=== PATIENT | male | born 1950 | race Caucasian/White ===

== ENCOUNTER 2018-04-17 19:25 | Inpatient (IN) | payer MEDICARE ==
[2018-04-17 20:02] LABS: Hemoglobin 12.8 g/dL (14.0-18.0); Mean Corpuscular Hemoglobin 30.1 pg (27.0-31.0); Mean Corpuscular Volume 91.3 fL (78.0-98.0); Mean Platelet Volume 8.3 fL (7.4-10.4); Platelet Count 178 thou/uL (130-400); RBC Distribution Width 12.5 % (11.5-14.5); Red Blood Cell (RBC) Count 4.24 mill/uL (4.70-6.10); White Blood Cell (WBC) Count 16.4 thou/uL (4.8-10.8)
[2018-04-17 20:19] LABS: Band 12 % (5-11); Lymphocytes 6 % (21-51); MDiff Complete? YES; Monocytes 2 % (0-10); Neutrophil 80 % (42-75); PLT Morphology Comment Appears Adequate; RBC Morphology Normal
[2018-04-17 20:24] LABS: ALT (SGPT) 33 U/L (8-55); AST (SGOT) 111 U/L (5-34); Albumin 3.8 g/dL (3.4-4.8); Alkaline Phosphatase 68 U/L (40-150); Anion Gap 19 mmol/L (10-20); BUN (Urea Nitrogen) 57 mg/dL (8.4-25.7); CK (CPK) 3845 U/L (30-200); Calc. Creatinine Clearance 0 mL/min (70-130); Calcium 9.3 mg/dL (7.8-10.44); Carbon Dioxide 21 mmol/L (23-31); Chloride 104 mmol/L (98-107); Estimated GFR-MDRD 44; Globulin 2.9 g/dL (2.4-3.5); Glucose 120 mg/dL (80-115); Protein, Total 6.7 g/dL (5.8-8.1); Sodium 140 mmol/L (136-145)
[2018-04-17 20:29] LABS: Troponin I 0.056 ng/mL (< 0.028)
[2018-04-17 20:30] LABS: CKMB 20.2 ng/mL (0-6.6)
[2018-04-17 20:48] LABS: Bilirubin Negative (Negative); Blood, Urine Negative (Negative); Clarity CLEAR (Clear); Glucose, Urine (Dipstick) Negative (Negative); Leukocyte Moderate (Negative); Nitrite Negative (Negative); Protein, Urine (Dipstick) Negative (Neg-Trace); Urobilinogen 0.2 mg/dL (0.2-1.0); pH, Urine 7.5 (5.0-9.0)
[2018-04-17] MEDS ORDERED: niCARdipine 20MG In NaCl 20 MG/200 ML BAG ONE (20:48)
--- NOTE | 2018-04-17 20:49 | CT ---
CT HEAD WITHOUT CONTRAST: Technique: Multiple contiguous axial images were obtained through the head without IV enhancement. Indications: Trauma, mental status change. FINDINGS: Ventricles are mildly prominent. Trivium septum pellucidum is noted. There are moderate chronic ische beena white matter changes. There is evidence of lacunar infarct involving the head of the caudate on t he left, age indeterminate. This extends into the left lentiform nucleus. There is also evidence of a lacunar infarct involving the right basal ganglia in the region of the po sterior limb of the right internal capsule and into the right thalamus, also age indeterminate. Small lacunar infarcts in the right lentiform nucleus. There is abnormal low attenuation of the brain stem on the right beginning at the level of the right cerebellar peduncle and extending into the mary ellen. No acute cortical infarct. No acute hemorrhage. IMPRESSION: There are prominent ischemic changes noted with evidence of multiple lacunar infarcts including brain stem infarcts, many of these are age indeterminate. Recommend MRI to assess for restricted diffusion . CTA would not be of benefit in evaluating deep small vessel infarcts. POS: [facility]
[2018-04-17 20:50] LABS: Bacteria/HPF None Seen HPF (None Seen); Hyaline Casts/LPF 0-3 HYALINE CAST LPF (0-3 Hyaline); RBC/HPF 0-3 HPF (0-3); Squamous Epithelial None Seen HPF (0-3); WBC/HPF None Seen HPF (0-3)
--- NOTE | 2018-04-17 20:50 | RAD ---
PORTABLE CHEST: History: Mental status change. FINDINGS: Lung wise are clear. Heart and mediastinum unremarkable. Vascular markings normal. IMPRESSION: No acute finding. POS: [facility]
[2018-04-17 20:51] LABS: Specific Gravity, Urine 1.002 (1.002-1.036)
[2018-04-17] MEDS ORDERED: Aspirin 325 MG TAB ONE (21:42)
[2018-04-17] MEDS ORDERED: Aspirin 300 MG Suppository ONE (21:51)
[2018-04-17] MEDS ORDERED: Calcium Carbonate 500 MG ChewTAB PO PRN (22:20)
[2018-04-17] MEDS ORDERED: Acetaminophen 325 MG TAB PO PRN (22:20)
[2018-04-17] MEDS ORDERED: Ondansetron PF 4 MG/2 ML Vial IVP PRN (22:20)
[2018-04-17] MEDS ORDERED: Ondansetron ODT 4 MG TAB PO PRN (22:20)
[2018-04-17] MEDS ORDERED: [UNRECOGNIZED DRUG - REMARK] IVPB PRN (22:33)
[2018-04-17 22:48] LABS: INR-International Normal Ratio 1.1; PTT 34.5 SEC (22.9-36.1); Prothrombin Time 14.5 SEC (12.0-14.7)
[2018-04-17] MEDS ORDERED: Vancomycin HCl 1 GM in Premix Bag 1 BAG IVPB SCH (23:15)
[2018-04-17] MEDS ORDERED: niCARdipine HCl 25 MG in Sodium Chloride 0.9% 250 ML 240 ML IVPB SCH (23:15)
[2018-04-17 23:25] VITALS: BMI 21.7
[2018-04-18] MEDS: Sodium Chloride 0.9% 1,000 ML IV SCH ×4 (00:05→23:49)
[2018-04-18 00:44] LABS: Troponin I 0.063 ng/mL (< 0.028)
[2018-04-18] MEDS: Piperacillin/Tazobactam 3.375 GM in Sodium Chloride 0.9% 100 ML IVPB SCH ×5 (01:42→23:49)
[2018-04-18] MEDS ORDERED: Clopidogrel Bisulfate 300 MG TAB PO SCH (02:15)
--- NOTE | 2018-04-18 02:37 | HP ---
CHIEF COMPLAINT: Sepsis and elevated blood pressure. HISTORY OF PRESENT ILLNESS: This is a 67-year-old male with no significant past medical history pres enting with sepsis and hypertensive urgency. History was taken from EMS and also electronic medical records. The patient currently is stating that he does not recall what happened to him, but per [facility] medical record, patient was brought in because the family called EMS stating that patient must have had a stroke. The patient was then transferred to our hospital to be evaluated. In the ED, simon givens was found to be septic and also found to have hypertensive urgency. REVIEW OF SYSTEMS: Unable to be obtained due to patient's mental status. The patient says that he d oes not recall anything that happened and patient is not answering questions. 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 PAST MEDICAL HISTORY: Unable to obtained from patient. PAST SURGICAL HISTORY: Unable to be obtained from the patient. FAMILY HISTORY: Unable to be obtained from patient. PSYCHIATRIC HISTORY: Unable to be obtained from patient. SOCIAL HISTORY: Unable to obtain from patient. ALLERGIES: No known drug allergies. CURRENT MEDICATIONS: Unable to obtain from patient. PHYSICAL EXAMINATION: VITAL SIGNS: Patient's blood pressure is 207/141, pulse of 101, respiratory rate of 22, temperature of 97.1, oxygen saturations 100% on room air. GENERAL: The patient is alert, oriented to only self. Patient is confused. Patient is not answerin g questions properly. Patient is not very cooperative. The patient looks very cachectic, disheveled , odorous. Patient is unkempt. HEENT: Normocephalic. Forehead abrasion and superficial contusion to front of forehead. Pupils are equally round and reactive to light. Extraocular movements are intact. No scleral icterus. NECK: Supple, no JVD. Trachea is midline. Full range of motion. LUNGS: Clear to auscultation bilaterally. No wheezing, no rales, no rhonchi is appreciated. CARDIOVASCULAR: Positive S1, S2, regular rate and rhythm. No murmurs, no gallops and no rubs apprec iated. ABDOMEN: Soft, nontender, nondistended, positive bowel sounds in all quadrants. BACK: Patient does have a pressure ulcer in the lumbar spine. EXTREMITIES: Patient has chronic venous stasis bilaterally of the lower extremities. Patient has 5/ 5 upper extremity strength, good pulses bilaterally in the upper extremities. Nails are dirty. The patient has onychomycosis of the nails and the nails are very long is uncut. Patient has 1+ edema at the ankle and there is a left knee abrasion. NEUROLOGIC: GCS of 15. The patient is alert, oriented to only self. Patient is confused. SKIN: No rashes seen. Warm and dry. PSYCHIATRIC: Patient is alert and oriented to only self. Patient is confused. Patient is not coope rative. The patient has a flat affect. IMAGING DATA: 1. EKG showed sinus rhythm at rate of 89, left anterior fascicular block with T-wave changes. 2. CT of the head showed ischemic changes noted in the lacunar region bilaterally and some hypodensi ties. 3. Chest x-ray is negative for any cardiopulmonary process. ED COURSE: Patient was given aspirin, Cardene IV and sodium chloride. LABORATORY DATA: WBC is 16.4, hemoglobin is 12.8, hematocrit 38.8, MCV is 91.3, RDW 12.5, platelet c ount 178 and neutrophils is 80%. PT is 14.5, INR is 1.1, PTT 34.4. Sodium 140, potassium is 4.0, chloride is 104, carbon dioxide of 2 1, anion gap of 19, BUN is 57, creatinine is 1.56, GFR 44, glucose 120, lactic acid is 1.8, AST 711, ALT 33, alkaline phosphatase 68, creatinine kinase 3845. Troponin is 0.056, 0.063 and there is moder ate leukoesterase and is on urinalysis. ASSESSMENT AND PLAN: 1. A 67-year-old male being admitted for encephalopathy, etiology unclear at this time, but most lik sola due to sepsis. 2. Sepsis secondary to urinary tract infection. At this point, patient has been started on antibiot ics. We will continue patient on antibiotics. We will continue patient on IV hydration. We will gi ve the patient medication for fever. 3. Acute kidney injury. The patient's creatinine is 1.56 and the patient's acute kidney injury is m ost likely due to dehydration. We will give patient gentle hydration. Monitor patient's creatinine and we will follow up on morning labs. 4. Hypertensive emergency. Patient's blood pressure is currently elevated. The patient has been st arted on IV Cardene. We will continue patient on IV Cardene and we will switch the patient to nitro if Cardene is not able to control the patient's blood pressure accordingly. 5. Malnutrition. We will get case management and we will give patient some nutrition. 6. Deconditioning. The patient will benefit from PT evaluation after patient has been treated and m anaged clinically. 7. Deep venous thrombosis and gastrointestinal prophylaxis.
[2018-04-18 06:14] LABS: #Lymphocytes 0.7 thou/uL (1.20-3.40); #Monocytes 0.5 thou/uL (0.11-0.59); #Neutrophils 10.3 thou/uL (1.40-6.50); %Basophils 0.4 % (0.0-1.0); %Eosinophils 0.2 % (0.0-10.0); %Monocytes 4.2 % (0.0-10.0); %Neutrophils 89.3 % (42.0-75.0); Hemoglobin 10.8 g/dL (14.0-18.0); Mean Corpuscular HGB CONC 33.3 g/dL (32.0-36.0); Mean Corpuscular Hemoglobin 30.4 pg (27.0-31.0); Mean Corpuscular Volume 91.4 fL (78.0-98.0); Platelet Count 148 thou/uL (130-400); RBC Distribution Width 12.4 % (11.5-14.5); Red Blood Cell (RBC) Count 3.54 mill/uL (4.70-6.10); White Blood Cell (WBC) Count 11.5 thou/uL (4.8-10.8)
[2018-04-18 06:32] LABS: ALT (SGPT) 37 U/L (8-55); AST (SGOT) 118 U/L (5-34); Albumin 3.2 g/dL (3.4-4.8); Alkaline Phosphatase 55 U/L (40-150); Anion Gap 12 mmol/L (10-20); BUN (Urea Nitrogen) 43 mg/dL (8.4-25.7); Bilirubin, Total 0.8 mg/dL (0.2-1.2); Calc. Creatinine Clearance 55 mL/min (70-130); Calcium 8.5 mg/dL (7.8-10.44); Carbon Dioxide 24 mmol/L (23-31); Chloride 110 mmol/L (98-107); Cholesterol 136 mg/dl (< 200 Desired); Estimated GFR-MDRD 64; Globulin 2.5 g/dL (2.4-3.5); Glucose 111 mg/dL (80-115); HDL Cholesterol 45 mg/dL (>60 Neg Risk); LDL Cholesterol, Calculated 76 mg/dL; Potassium 3.1 mmol/L (3.5-5.1); Protein, Total 5.7 g/dL (5.8-8.1); Sodium 143 mmol/L (136-145); Triglycerides 74 mg/dL (Less than 150)
[2018-04-18] MEDS ORDERED: CCU Electrolyte Replacement 1 EACH FS ONE (07:45)
[2018-04-18] MEDS ORDERED: Potassium Phosphate 12 MMOL in Sodium Chloride 0.9% 250 ML 250 ML IV PRN (07:51)
[2018-04-18] MEDS ORDERED: Potassium Chloride 20 MEQ TAB PO PRN (07:51)
[2018-04-18] MEDS ORDERED: Potassium Phosphate 9 MMOL in Sodium Chloride 0.9% 100 ML IVPB PRN (07:51)
[2018-04-18] MEDS ORDERED: Potassium Chloride 40 MEQ in Premix Bag 1 BAG IVPB PRN (07:51)
[2018-04-18] MEDS ORDERED: Magnesium Oxide 400 MG TAB PO PRN ×2 (07:51)
[2018-04-18] MEDS ORDERED: Potassium Chloride 40 MEQ in Sodium Chloride 0.9% 250 ML 250 ML IVPB PRN (07:51)
[2018-04-18] MEDS ORDERED: CCU ELECTROLYTE REPLACEMENT PROTOCOL FS PRN (07:51)
[2018-04-18] MEDS ORDERED: Potassium Phosphate 15 MMOL in Sodium Chloride 0.9% 250 ML 250 ML IV PRN (07:51)
[2018-04-18] MEDS ORDERED: Magnesium 2 GM/NS 0.9% 100 ML 2 GM in Premix Bag 1 BAG IVPB PRN (07:51)
[2018-04-18] MEDS: Metoprolol Tartrate 25 MG TAB PO SCH ×2 (08:10→20:10)
--- NOTE | 2018-04-18 08:12 | CON ---
DATE OF CONSULTATION: 04/18/2018 CONSULTING PHYSICIAN: Dr. Fer Sierra from the hospitalist group. REASON FOR CONSULTATION: Hypertensive emergency. HISTORY OF PRESENT ILLNESS: This is a 67-year-old male, who was brought into the emergency room last night after his family called EMS stating that the patient must have had a stroke. It is not clear what led to that assumption. The patient is really unable to give much in the way of history. He wi ll answer some short questions, but at times appears mostly catatonic. He was diagnosed with a urina ry tract infection and also hypertensive emergency. He was placed on nicardipine drip. He was found to have an elevated CK and has mildly elevated troponin. PAST MEDICAL HISTORY: Unknown. PAST SURGICAL HISTORY: Unknown. FAMILY MEDICAL HISTORY: Unknown. SOCIAL HISTORY: Unknown. ALLERGIES: Unknown. MEDICATIONS PRIOR TO ADMISSION: None. REVIEW OF SYSTEMS: Unobtainable. PHYSICAL EXAMINATION: VITAL SIGNS: Temperature 99.2, pulse 90, blood pressure 138/69, O2 saturation 99%. GENERAL: He is a disheveled-appearing male in no acute distress. HEENT EXAM: Pupils are 2 mm and reactive. Sclerae icteric. Oropharynx cannot examine; the patient will not open his mouth. NECK: No adenopathy. No JVD. CARDIAC: S1 and S2, regular with 2/6 systolic murmur. LUNGS: Clear. ABDOMEN: Soft, nontender, nondistended. EXTREMITIES: He has a bruise over his left knee. He will move all 4 extremities. LABORATORY DATA: Sodium 143, potassium 3.1, chloride 110, CO2 of 24, BUN 43, creatinine 1.1, glucose 111, AST 118, ALT 37, albumin 3.2. Troponin 0.063. CK-MB 3845. Urinalysis shows some moderate felix kocyte esterase. White blood cell count 11.5, hematocrit 32.4, platelet count 148. FINDINGS: Chest x-ray shows no evidence of a mass, effusion, or infiltrate. ASSESSMENT: 1. Altered mental status - etiology unclear. He does have some ischemic-appearing changes in the br ain, but age of these lesions could not be determined. 2. Elevated blood pressure at time of admission. 3. Mild rhabdomyolysis. 4. Doubt this is an acute coronary syndrome. RECOMMENDATIONS: 1. Stop the nicardipine drip and use labetalol p.r.n. elevated blood pressure. 2. Stop high dose Lovenox and go to a therapeutic dose. 3. We would consider stopping the Plavix also, but we will defer to Internal Medicine and Neurology on this. 4. I would limit his antibiotics to 48 hours if cultures are negative. 5. Obtain more history from family when they become available.
[2018-04-18] MEDS: Enoxaparin Sodium 40 MG/0.4 ML SYRINGE SC SCH (08:13)
[2018-04-18] MEDS ORDERED: Famotidine/PF 20 mg/2ml Vial SLOW IVP SCH ×2 (09:00)
[2018-04-18] MEDS ORDERED: Clopidogrel Bisulfate 75 MG TAB PO SCH (09:00)
[2018-04-18] MEDS ORDERED: Aspirin 81 mg Enteric Coated Tablet PO SCH (09:00)
[2018-04-18] MEDS ORDERED: Enoxaparin Sodium 40 MG/0.4 ML SYRINGE SC SCH (09:00)
[2018-04-18] MEDS ORDERED: Enoxaparin Sodium 60 MG/0.6 ML SYRINGE SC SCH (09:00)
--- NOTE | 2018-04-18 13:31 | PQF ---
CLINICAL DOCUMENTATION IMPROVEMENT CLARIFICATION FORM: ICD-10 Updated PLEASE DO AN ADDENDUM TO THE PROGRESS NOTE WITH ANY DOCUMENTATION UPDATES OR ADDITIONS AND CARRY THROUGH TO DC SUMMARY. THANK YOU. DATE: 04/17/18 ATTN: DR. DRISCOLL Please exercise your independent, professional judgment in responding to the clarification form. Clinical indicators are provided on the bottom of this form for your review Please check appropriate box(s): [ x ] Encephalopathy: Type: [ x ] Acute [ ] Subacute [ ] Chronic Etiology: [ x ] Hypertensive [ x ] Metabolic [ ] Toxic [ ] Hepatic with Coma [ ] Hepatic w/o Coma [ ] Hypoxic [ ] Septic [ ] Drug induced: [ ] Unspecified [ ] in the setting of underlying dementia [ ] Other (please specify) [ ] Transient Alteration of Awareness [ ] Other diagnosis [ ] Unable to determine In addition, please specify: Present on Admission (POA): [ x ] Yes [ ] No [ ] Unable to determine For continuity of documentation, please document condition throughout progress notes and discharge summary. Thank You. 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 All Rights Reserved [email or web address] Office: [phone] [facility] HOSPITALJacob
--- NOTE | 2018-04-18 13:45 | PDOC.PN ---
- Subjective Encounter Start Date: 04/18/18 Encounter Start Time: 07:00 Pt seen for followup re: acute metabolic encephalopathy. Pt is not answering questions, just staring, unable to complete ROS. - Objective Resuscitation Status: Resuscitation Status FULL:Full Resuscitation MAR Reviewed: Yes Vital Signs & Weight: Vital Signs (12 hours) Temp Pulse Ox 04/18/18 08:00 100 04/18/18 07:00 99.2 F 04/18/18 04:00 98.4 F Weight Weight 138 lb 7.205 oz Most Recent Monitor Data Heart Rate from ECG 88 NIBP 137/69 NIBP BP-Mean 91 Respiration from ECG 10 SpO2 99 I&O: 04/17/18 04/18/18 04/19/18 06:59 06:59 06:59 Intake Total 1822.7 Output Total 280 450 Balance 1542.7 -450 Result Diagrams: 04/18/18 05:59 04/18/18 05:59 EKG Reviewed by me: Yes (Tele: NSR) Phys Exam - Physical Examination Constitutional: NAD HEENT: moist MMs, sclera anicteric, oral pharynx no lesions, 2+ tonsils Neck: no nodes, no JVD, supple, full ROM Respiratory: no wheezing, no rales, no rhonchi, clear to auscultation bilateral Cardiovascular: RRR, no rub S1, S2 Gastrointestinal: soft, non-tender, no distention, positive bowel sounds Neurological: moves all 4 limbs Psychiatric: normal affect Deviation from normal: Unable to assess orientation to person, place or time Deviation from normal: Wounds as documented Dx/Plan (1) Acute metabolic encephalopathy Code(s): G93.41 - METABOLIC ENCEPHALOPATHY Status: Acute Comment: Likely multifactorial, including infection (2) Sepsis Code(s): A41.9 - SEPSIS, UNSPECIFIED ORGANISM Status: Acute Comment: secondary to probable UTI (3) UTI (urinary tract infection) Status: Acute Comment: continue IV Zosyn and IV vancomycin (4) Hypokalemia Code(s): E87.6 - HYPOKALEMIA Status: Acute Comment: replace potassium and recheck (5) Hypertensive urgency Code(s): I16.0 - HYPERTENSIVE URGENCY Status: Acute Comment: Improved (6) AIDEN (acute kidney injury) Code(s): N17.9 - ACUTE KIDNEY FAILURE, UNSPECIFIED Status: Resolved - Plan * . Review of Systems - Medications/Allergies Allergies/Adverse Reactions: Allergies Allergy/AdvReac Type Severity Reaction Status Date / Time No Known Drug Allergies Allergy Unverified 04/17/18 22:56 Medications: Current Medications Acetaminophen (Tylenol) 650 mg PO Q4H PRN PRN Reason: Headache/Fever/Mild Pain (1-3) Atorvastatin Calcium (Lipitor) 80 mg PO HS [facility] Calcium Carbonate (Tums) 1,000 mg PO Q4H PRN PRN Reason: Heartburn or Indigestion Clopidogrel Bisulfate (Plavix) 75 mg PO DAILY [facility] Last Admin: 04/18/18 08:10 Dose: 75 mg Enoxaparin Sodium (Lovenox) 40 mg SC 0900 [facility] Last Admin: 04/18/18 08:13 Dose: 40 mg Famotidine (Pepcid) 20 mg PO BID [facility] Sodium Chloride (Normal Saline 0.9%) 1,000 mls @ 125 mls/hr IV .Q8H [facility] Last Admin: 04/18/18 11:52 Dose: 1,000 mls Piperacillin Sod/Tazobactam (Sod 3.375 gm/ Sodium Chloride) 100 mls @ 200 mls/ hr IVPB Q6HR [facility] Last Admin: 04/18/18 11:56 Dose: 100 mls Vancomycin HCl 1 gm/ Device 200 mls @ 200 mls/hr IVPB Q24HR [facility] Potassium Chloride 40 meq/ (Sodium Chloride) 270 mls @ 135 mls/hr IVPB ASDIR PRN PRN Reason: FOR SERUM K+ 2.5 - 3.5 Potassium Chloride 40 meq/ (Device) 100 mls @ 50 mls/hr IVPB ASDIR PRN PRN Reason: FOR SERUM K+ 2.5 - 3.5 Magnesium Sulfate 1 gm/ Sodium (Chloride) 102 mls @ 102 mls/hr IV PRN PRN PRN Reason: MAG LEVEL 1.4 - 2.0 Magnesium Sulfate 2 gm/ Device 100 mls @ 100 mls/hr IVPB ASDIR PRN PRN Reason: MAGNESIUM < 1.4 Potassium Phosphate 9 mmol/ (Sodium Chloride) 103 mls @ 25.75 mls/hr IVPB ASDIR PRN PRN Reason: Phosphate 1.0-1.8 Potassium Phosphate 12 mmol/ (Sodium Chloride) 254 mls @ 63.5 mls/hr IV ASDIR PRN PRN Reason: Serum phosphate 0.5-0.9 Potassium Phosphate 15 mmol/ (Sodium Chloride) 255 mls @ 63.75 mls/hr IV ASDIR PRN PRN Reason: Serum Phos < 0.5 Labetalol HCl (Normodyne) 20 mg SLOW IVP Q4H PRN PRN Reason: SBP GREATER THAN 160 Magnesium Oxide (Magnesium Oxide) 400 mg PO BIDPRN PRN PRN Reason: FOR SERUM MAG 1.4 - 2.0 Magnesium Oxide (Magnesium Oxide) 800 mg PO PRN PRN PRN Reason: FOR SERUM MAG < 1.4 Metoprolol Tartrate (Lopressor) 12.5 mg PO BID [facility] Last Admin: 04/18/18 08:10 Dose: 12.5 mg Miscellaneous Medication (Pharmacy To Dose) 1 each IVPB PRN PRN PRN Reason: Pharmacy to dose Miscellaneous Medication (Pharmacy To Dose) 1 each IVPB ONE PRN PRN Reason: Pharmacy to dose Stop: 04/18/18 23:59 Miscellaneous Medication (Phos-Nak) 1 pkt PO TIDPRN PRN PRN Reason: FOR PHOS LEVEL 1.0 - 1.8 Miscellaneous Medication (Phos-Nak) 2 pkt PO TIDPRN PRN PRN Reason: FOR PHOS LEVEL 0.5 - 1.0 Ccu Electrolyte (Replacement Protocol) 0 each FS PRN PRN PRN Reason: FOR ELECTROLYTE REPLACEMENT Ondansetron HCl (Zofran Odt) 4 mg PO Q6H PRN PRN Reason: Nausea/Vomiting Ondansetron HCl (Zofran) 4 mg IVP Q6H PRN PRN Reason: Nausea/Vomiting Potassium Chloride (K-Dur) 40 meq PO ASDIR PRN PRN Reason: FOR SERUM K+ 2.5 - 3.5 Potassium Chloride (Klor-Con) 40 meq PER TUBE ASDIR PRN PRN Reason: FOR SERUM K+ 2.5-3.5 Sodium Chloride (Flush - Normal Saline) 10 ml IVF PRN PRN PRN Reason: Saline Flush
--- NOTE | 2018-04-18 14:30 | MRI ---
MRI BRAIN WITHOUT CONTRAST: COMPARISON: Reference is made to head CT from preceding day. CLINICAL INDICATION: History of altered mental status. History of recent trauma. FINDINGS: There is punctate restricted diffusion involving the anterior left thalamus, and within the bilateral cerebellar hemispheres as well as medially within the posterior aspect of the left centrum semiovale . There are chronic cavitary lacunar infarctions which involve the brainstem bilaterally and the inf erior left cerebellar hemisphere. Not confirmed on CT from preceding day, there is hemorrhagic susceptibility of the anterior left temp oral sulci. In addition, there are multifocal susceptibility foci consistent with mack artifact whi ch involve the bilateral brain parenchyma as well as deep barrientos nuclei and the brainstem. Cavum septu m pellucidum et vergae is present. There is prominence of the ventricular system due to generalized mild parenchymal atrophy. Prominent gliosis of the bilateral cerebral white matter and brainstem ind icates moderate chronic microvascular ischemic disease. There is motion artifact which limits evalua tion. IMPRESSION: 1. Multifocal punctate restricted diffusion compatible with recent infarctions, involving supratento rial and infratentorial brain. This could relate to an embolic phenomenon versus hyperperfusion. 2. Multifocal susceptibility artifact compatible with areas of hemosiderin deposition, the dominant of which confirms for anterior left temporal sulci. The possibility of small volume of subarachnoid hemorrhage from recent hemorrhage is not excluded, or alternatively this could relate to remote hemos iderin staining, although this is not confirmed on the preceding CT head exam as an area of definitiv e remote infarction. The additional multifocal susceptibility foci favor sequelae from vasculopathy s uch as amyloid angiopathy or alternatively findings can be seen in the setting of hypertensive microh emorrhages or ischemic microhemorrhage. Given history of trauma which was provided on the previous d ay's exams, the possibility of diffuse axonal injury cannot be excluded. Correlate clinically in thi s regard. Additional details are as described above. These findings were telephoned to the patient's physician, Prashant Dawson, at the time of dictation. CODE CR POS: [place]
--- NOTE | 2018-04-18 19:44 | CON ---
DATE OF CONSULTATION: 04/18/2018 HISTORY OF PRESENT ILLNESS: Ronak Nelson is a 67-year-old white male who was brought to the hospital by EMS after the family called 911 stating that they thought he has a stroke. It is exactly unclear exactly what was happening at home. However, he has been fairly uncooperative and is in 4-point restraints at the present time. He was very confused and most of time would not answer any questions. He has 1 evidence of rhabdomyolysis and also slight elevation in troponin I. He has significant hypertension and was placed on Cardene drip and also found to have urinary tract infection and felt to have urosepsis. PAST MEDICAL HISTORY: Unknown although he states that he has had high blood pressure in the past. MEDICATIONS: None. ALLERGIES: Unknown. SOCIAL HISTORY: Apparently smokes. He has a history of drug abuse in the past. FAMILY HISTORY: Unobtainable. REVIEW OF SYSTEMS: Unobtainable. PHYSICAL EXAMINATION: VITAL SIGNS: Blood pressure 136/81, pulse of 86, sinus rhythm. HEENT: PERRL. NECK: Supple. CHEST: Clear. CARDIAC: S1, S2 normal, without any S3, S4. There is a 1/6 systolic ejection murmur. ABDOMEN: Normal bowel sounds, without tenderness or organomegaly. EXTREMITIES: Revealed no clubbing, cyanosis or edema. NEUROLOGIC: It is hard to assess in that the patient really does not answer most questions. IMAGING DATA AND LABORATORY DATA: EKG revealed normal sinus rhythm with left anterior fascicular block, nonspecific T-wave changes. Hemoglobin 10.8, hematocrit 32.4, white count 11,500 and platelets 140,000. INR 1.1, sodium 143 , potassium 3.1, chloride 110, carbon dioxide 24, BUN 43, creatinine 1.13. It is of note that on admission, his BUN 57, creatinine 1.56, CK 3845, CK-MB 20.2, troponin I 0.063. Cholesterol 136, triglycerides 74, HDL 45 and LDL 76. Urinalysis revealed moderate leukocyte esterase, 0-3 RBCs. No bacteria or white cells were seen. Blood culture is growing a gram-variable deb. IMPRESSION: 1. Altered mental status. In discussing with the nurse there is questionable history of schizophrenia. 2. Probable urosepsis. 3. Hypertensive emergency, now under better control. 4. Rhabdomyolysis. 5. Demand ischemia. I do not see any evidence for acute coronary syndrome. 6. Smoker. PLAN: Echocardiogram will be performed. He has been started on aspirin. I do not feel that he needs to be on Plavix or the high dose atorvastatin with his current LDL. MTDD
[2018-04-18] MEDS: Famotidine 20 MG TAB PO SCH (20:10)
--- NOTE | 2018-04-18 20:16 | CON ---
DATE OF CONSULTATION: 04/18/2018 NEUROLOGY CONSULTATION CONSULTING PHYSICIAN: Hospitalist Service. IMPRESSION: There are some minor acute ischemic changes noted in the midst of severe hypertension. He seems to have a nonfocal exam and he is generally disheveled with decubitus ulcers. Overall, I th ink that there is probably a psychiatric component superimposed on maybe some transient hypertensive encephalopathy. PLAN: 1. Continue supportive measures. 2. Aspirin daily. 3. Start a low dose of statin. Mr. Nelson is a 67-year-old man who was brought in with reported mental status changes. He was noted to be severely hypertensive with pressures of 240/140. He was started on IV medications to bring his blood pressure under control. He has continued to act oddly since admission. He denies a history o f psychiatric problems. His blood pressure has been doing well for the last 24 hours. He had an MRI of the brain done today which showed a fairly extensive amount of chronic white matter ischemic solomon ges superimposed on a few punctate areas of acute ischemia involving the bilateral cerebellar lobes a nd left periventricular region. None of these appear clinically significant. The patient is without any complaints of headache, nausea, dizziness or chest pain. PAST MEDICAL HISTORY: Otherwise unknown. ALLERGIES: None reported. FAMILY HISTORY: Not obtainable. REVIEW OF SYSTEMS: Otherwise, negative. PHYSICAL EXAMINATION: GENERAL: He is a thin, disheveled-appearing gentleman, lying in bed quietly. VITAL SIGNS: Blood pressure 148/77, pulse 75, respirations 12 and saturations 100%. HEENT: Pupils equal and reactive. Conjunctivae clear. Oropharynx is clear. NECK: Supple. EXTREMITIES: There is some skin breakdown on the heels due to pressure ulcers. Same is true for the coccyx region. NEUROLOGIC: He is awake and has a very flat affect. He speaks very softly. He would follow some si mple commands reasonably well. Cranial nerves appeared to be intact. He had good antigravity streng th in both upper extremities. Could not really get him to cooperate with moving his legs, but he did withdraw appropriately to stimulation. Plantar responses were downgoing bilaterally. No abnormal m ovements were seen. SUMMARY: His current management appears appropriate given his extensive small vessel ischemic diseas e. I would go ahead and start antiplatelet therapy and a statin, might benefit from psychiatric eval uation later.
[2018-04-18] MEDS ORDERED: Vancomycin HCl 1 GM in Premix Bag 1 BAG IVPB SCH (21:00)
[2018-04-18] MEDS ORDERED: Atorvastatin Calcium 40 MG TAB PO SCH (21:00)
[2018-04-19 05:26] LABS: #Eosinphils 0.1 thou/uL (0.0-0.7); #Lymphocytes 0.7 thou/uL (1.20-3.40); #Monocytes 0.3 thou/uL (0.11-0.59); #Neutrophils 5.7 thou/uL (1.40-6.50); %Basophils 0.6 % (0.0-1.0); %Eosinophils 1.7 % (0.0-10.0); %Monocytes 4.7 % (0.0-10.0); Hemoglobin 10.1 g/dL (14.0-18.0); Mean Corpuscular HGB CONC 31.8 g/dL (32.0-36.0); Mean Corpuscular Volume 94.2 fL (78.0-98.0); Mean Platelet Volume 8.1 fL (7.4-10.4); Platelet Count 153 thou/uL (130-400); RBC Distribution Width 12.6 % (11.5-14.5); Red Blood Cell (RBC) Count 3.38 mill/uL (4.70-6.10); White Blood Cell (WBC) Count 6.9 thou/uL (4.8-10.8)
[2018-04-19 05:46] LABS: ALT (SGPT) 35 U/L (8-55); AST (SGOT) 95 U/L (5-34); Alkaline Phosphatase 51 U/L (40-150); Anion Gap 12 mmol/L (10-20); BUN (Urea Nitrogen) 23 mg/dL (8.4-25.7); Bilirubin, Total 0.5 mg/dL (0.2-1.2); CK (CPK) 1420 U/L (30-200); Calc. Creatinine Clearance 65 mL/min (70-130); Calcium 8.4 mg/dL (7.8-10.44); Carbon Dioxide 23 mmol/L (23-31); Chloride 113 mmol/L (98-107); Estimated GFR-MDRD 79; Globulin 2.4 g/dL (2.4-3.5); Glucose 95 mg/dL (80-115); Magnesium 1.7 mg/dL (1.6-2.6); Phosphorus 2.1 mg/dL (2.3-4.7); Protein, Total 5.4 g/dL (5.8-8.1); Sodium 145 mmol/L (136-145)
[2018-04-19] MEDS: Piperacillin/Tazobactam 3.375 GM in Sodium Chloride 0.9% 100 ML IVPB SCH ×3 (06:06→17:25)
[2018-04-19] MEDS: hydrALAZINE 20 MG/ML VIAL SLOW IVP PRN ×2 (06:53→13:18)
--- NOTE | 2018-04-19 08:05 | PRG ---
DATE OF SERVICE: 04/19/2018 SUBJECTIVE: The patient continues to be about the same. He will answer some short questions. He mo ves all 4 extremities to command. PHYSICAL EXAMINATION: VITAL SIGNS: On exam, his temperature is 98.0, pulse 65, blood pressure 170/80, O2 sat 100%. A 24-h our intake 2193 and output 1995. HEENT: Unremarkable. NECK: No JVD. CHEST: Clear without wheezing. CARDIAC: S1 and S2, regular. ABDOMEN: Soft. EXTREMITIES: No edema. His blood cultures are growing out Proteus, left arm. LABORATORY DATA: Sodium 145, potassium 3.0, chloride 113, CO2 of 23, BUN 23, creatinine 0.9, glucose 95, phosphorus 2.1, AST 95, ALT 35. CPK 1420, albumin 3.0. White blood cell count 6.9, hematocrit 31.8, platelet count 153. ASSESSMENT: 1. Hypertension. 2. Sepsis syndrome with Proteus. 3. Decubitus ulcer. 4. Rhabdomyolysis. PLAN: 1. Could transfer out to the stroke floor and begin rehabilitation therapy. 2. Continue antibiotics., but discontinue the vancomycin since only gram-negatives are growing. 3. Hypertension, management per Internal Medicine and Cardiology.
[2018-04-19] MEDS: Famotidine 20 MG TAB PO SCH ×2 (08:12→22:15)
[2018-04-19] MEDS: Enoxaparin Sodium 40 MG/0.4 ML SYRINGE SC SCH (08:12)
[2018-04-19] MEDS: Metoprolol Tartrate 25 MG TAB PO SCH ×2 (08:12→22:15)
[2018-04-19] MEDS: Sodium Chloride 0.9% 1,000 ML IV SCH (10:35)
[2018-04-19] MEDS: Sodium Chloride 0.45% 1,000 ML IV SCH (12:40)
[2018-04-19] MEDS ORDERED: Potassium Phosphate 30 MMOL in Sodium Chloride 0.9% 500 ML IVPB SCH (13:00)
--- NOTE | 2018-04-19 15:08 | PDOC.PN ---
- Subjective Encounter Start Date: 04/19/18 Encounter Start Time: 08:40 Pt seen for followup re: acute metabolic encephalopathy. Not answering questions, unable to complete ROS. - Objective Resuscitation Status: Resuscitation Status FULL:Full Resuscitation MAR Reviewed: Yes Vital Signs & Weight: Vital Signs (12 hours) Temp Pulse Pulse Pulse BP BP BP 04/19/18 13:18 69 179/86 H 04/19/18 11:00 98.1 F 04/19/18 10:01 94 112 H 144/70 H 170/83 H 04/19/18 07:30 04/19/18 07:00 98.0 F 04/19/18 06:53 69 170/80 H 04/19/18 04:00 98 F Pulse Ox 04/19/18 13:18 04/19/18 11:00 04/19/18 10:01 04/19/18 07:30 99 04/19/18 07:00 04/19/18 06:53 04/19/18 04:00 Weight Admit Weight 138 lb 7.205 oz Weight 138 lb 7.205 oz Most Recent Monitor Data Heart Rate from ECG 107 NIBP 162/88 NIBP BP-Mean 112 Respiration from ECG 20 SpO2 100 I&O: 04/18/18 04/19/18 04/20/18 06:59 06:59 06:59 Intake Total 1822.7 2193 1395 Output Total 280 1995 426 Balance 1542.7 198 969 Result Diagrams: 04/19/18 04:32 04/19/18 04:32 EKG Reviewed by me: Yes (Tele: NSR) Phys Exam - Physical Examination Constitutional: NAD HEENT: moist MMs, sclera anicteric, oral pharynx no lesions, 2+ tonsils Neck: no nodes, no JVD, supple, full ROM Respiratory: no wheezing, no rales, no rhonchi, clear to auscultation bilateral Cardiovascular: RRR, no rub S1, S2 Gastrointestinal: soft, non-tender, no distention, positive bowel sounds Neurological: moves all 4 limbs Deviation from normal: Unable to assess mood or orientation to person, place, or time Deviation from normal: wounds as documented Dx/Plan (1) Acute metabolic encephalopathy Code(s): G93.41 - METABOLIC ENCEPHALOPATHY Status: Acute Comment: Likely multifactorial, fluctuating level of alertness (2) Sepsis Code(s): A41.9 - SEPSIS, UNSPECIFIED ORGANISM Status: Acute Comment: secondary to bacteremia, continue IV Zosyn (3) Hypokalemia Code(s): E87.6 - HYPOKALEMIA Status: Acute Comment: replace potassium and recheck (4) UTI (urinary tract infection) Status: Suspected Comment: urine culture showed mixed growth (5) Hypertensive urgency Code(s): I16.0 - HYPERTENSIVE URGENCY Status: Resolved (6) AIDEN (acute kidney injury) Code(s): N17.9 - ACUTE KIDNEY FAILURE, UNSPECIFIED Status: Resolved - Plan * . Review of Systems - Medications/Allergies Allergies/Adverse Reactions: Allergies Allergy/AdvReac Type Severity Reaction Status Date / Time No Known Drug Allergies Allergy Unverified 04/17/18 22:56 Medications: Current Medications Acetaminophen (Tylenol) 650 mg PO Q4H PRN PRN Reason: Headache/Fever/Mild Pain (1-3) Enoxaparin Sodium (Lovenox) 40 mg SC 0900 [facility] Last Admin: 04/19/18 08:12 Dose: 40 mg Famotidine (Pepcid) 20 mg PO BID [facility] Last Admin: 04/19/18 08:12 Dose: 20 mg Hydralazine HCl (Apresoline) 10 mg SLOW IVP Q6H PRN PRN Reason: SBP Greater Than 170 Last Admin: 04/19/18 13:18 Dose: 10 mg Piperacillin Sod/Tazobactam (Sod 3.375 gm/ Sodium Chloride) 100 mls @ 200 mls/ hr IVPB Q6HR [facility] Last Admin: 04/19/18 12:40 Dose: 100 mls Sodium Chloride (1/2 Normal Saline) 1,000 mls @ 75 mls/hr IV .[id number] [facility] Last Admin: 04/19/18 12:40 Dose: 1,000 mls Potassium Phosphate 30 mmol/ (Sodium Chloride) 510 mls @ 83.3 mls/hr IVPB NOW [facility] Stop: 04/19/18 19:08 Last Admin: 04/19/18 13:18 Dose: 510 mls Labetalol HCl (Normodyne) 20 mg SLOW IVP Q4H PRN PRN Reason: SBP GREATER THAN 160 Metoprolol Tartrate (Lopressor) 12.5 mg PO BID [facility] Last Admin: 04/19/18 08:12 Dose: 12.5 mg Miscellaneous Medication (Pharmacy To Dose) 1 each IVPB PRN PRN PRN Reason: Pharmacy to dose Ccu Electrolyte (Replacement Protocol) 0 each FS PRN PRN PRN Reason: FOR ELECTROLYTE REPLACEMENT
[2018-04-19] MEDS: Labetalol HCl 100 MG/20 ML VIAL SLOW IVP PRN (17:49)
[2018-04-20] MEDS: Labetalol HCl 100 MG/20 ML VIAL SLOW IVP PRN ×3 (00:25→16:13)
[2018-04-20] MEDS: Piperacillin/Tazobactam 3.375 GM in Sodium Chloride 0.9% 100 ML IVPB SCH ×2 (00:25→06:10)
[2018-04-20] MEDS: Sodium Chloride 0.45% 1,000 ML IV SCH ×2 (00:33→16:13)
[2018-04-20 04:53] LABS: Anion Gap 11 mmol/L (10-20); BUN (Urea Nitrogen) 19 mg/dL (8.4-25.7); CK (CPK) 565 U/L (30-200); Calc. Creatinine Clearance 61 mL/min (70-130); Calcium 8.3 mg/dL (7.8-10.44); Carbon Dioxide 23 mmol/L (23-31); Chloride 114 mmol/L (98-107); Estimated GFR-MDRD 72; Glucose 102 mg/dL (80-115); Phosphorus 2.7 mg/dL (2.3-4.7); Potassium 3.3 mmol/L (3.5-5.1); Sodium 145 mmol/L (136-145)
[2018-04-20] MEDS ORDERED: ISOVUE-370 76%-LOCM 1 ML ONE (08:54)
[2018-04-20] MEDS: Metoprolol Tartrate 25 MG TAB PO SCH ×2 (09:20→22:56)
[2018-04-20] MEDS: Enoxaparin Sodium 40 MG/0.4 ML SYRINGE SC SCH (09:21)
[2018-04-20] MEDS: Famotidine 20 MG TAB PO SCH ×2 (09:21→22:56)
[2018-04-20] MEDS: hydrALAZINE 20 MG/ML VIAL SLOW IVP PRN ×2 (09:22→18:55)
--- NOTE | 2018-04-20 13:51 | PDOC.PN ---
- Subjective Encounter Start Date: 04/20/18 Encounter Start Time: 07:20 Pt seen for followup re: bacteremia. Not answering questions, unable to complete ROS. - Objective Resuscitation Status: Resuscitation Status FULL:Full Resuscitation MAR Reviewed: Yes Vital Signs & Weight: Vital Signs (12 hours) Temp Pulse Resp BP BP Pulse Ox 04/20/18 11:00 97.8 F 75 16 167/79 H 98 04/20/18 09:22 73 179/87 H 04/20/18 07:44 98.5 F 66 16 176/80 H 98 04/20/18 05:13 153/81 H 04/20/18 04:26 68 188/93 H 04/20/18 04:20 188/90 H 04/20/18 04:00 98.6 F 79 18 188/93 H 97 Weight Admit Weight 138 lb 7.205 oz Weight 138 lb 7.205 oz Most Recent Monitor Data Heart Rate from ECG 71 NIBP 162/87 NIBP BP-Mean 112 Respiration from ECG 2 SpO2 100 I&O: 04/19/18 04/20/18 04/21/18 06:59 06:59 06:59 Intake Total 2193 2227 Output Total 1994 558 Balance 198 1669 Result Diagrams: 04/19/18 04:32 04/20/18 03:59 EKG Reviewed by me: Yes (Tele: NSR) Phys Exam - Physical Examination Constitutional: NAD HEENT: moist MMs Neck: supple Respiratory: clear to auscultation bilateral Cardiovascular: RRR Gastrointestinal: soft Neurological: moves all 4 limbs Psychiatric: normal affect Deviation from normal: Bruises Dx/Plan (1) Bacteremia Code(s): R78.81 - BACTEREMIA Status: Acute Comment: blood cultures posiive for Proteus and Morganella, switch antibiotics to ciprofloxacin. (2) Acute metabolic encephalopathy Code(s): G93.41 - METABOLIC ENCEPHALOPATHY Status: Acute Comment: Likely multifactorial, including infection and probable psychiatric disorder (3) Hypokalemia Code(s): E87.6 - HYPOKALEMIA Status: Acute Comment: replace potassium and recheck (4) UTI (urinary tract infection) Status: Suspected (5) Hypertensive urgency Code(s): I16.0 - HYPERTENSIVE URGENCY Status: Resolved (6) AIDEN (acute kidney injury) Code(s): N17.9 - ACUTE KIDNEY FAILURE, UNSPECIFIED Status: Resolved (7) Sepsis Code(s): A41.9 - SEPSIS, UNSPECIFIED ORGANISM Status: Resolved - Plan * . Review of Systems - Medications/Allergies Allergies/Adverse Reactions: Allergies Allergy/AdvReac Type Severity Reaction Status Date / Time No Known Drug Allergies Allergy Verified 04/20/18 05:55 Medications: Current Medications Acetaminophen (Tylenol) 650 mg PO Q4H PRN PRN Reason: Headache/Fever/Mild Pain (1-3) Enoxaparin Sodium (Lovenox) 40 mg SC 0900 [facility] Last Admin: 04/20/18 09:21 Dose: 40 mg Famotidine (Pepcid) 20 mg PO BID [facility] Last Admin: 04/20/18 09:21 Dose: 20 mg Hydralazine HCl (Apresoline) 10 mg SLOW IVP Q6H PRN PRN Reason: SBP Greater Than 170 Last Admin: 04/20/18 09:22 Dose: 10 mg Sodium Chloride (1/2 Normal Saline) 1,000 mls @ 75 mls/hr IV .[id number] [facility] Last Admin: 04/20/18 00:33 Dose: 1,000 mls Ciprofloxacin/Dextrose 400 mg/ (Device) 200 mls @ 200 mls/hr IVPB Q12HR [facility] Labetalol HCl (Normodyne) 20 mg SLOW IVP Q4H PRN PRN Reason: SBP GREATER THAN 160 Last Admin: 04/20/18 04:26 Dose: 4 ml Metoprolol Tartrate (Lopressor) 12.5 mg PO BID [facility] Last Admin: 04/20/18 09:20 Dose: 12.5 mg Ccu Electrolyte (Replacement Protocol) 0 each FS PRN PRN PRN Reason: FOR ELECTROLYTE REPLACEMENT
[2018-04-20] MEDS ORDERED: Potassium Chloride 20 MEQ TAB PO SCH (14:00)
--- NOTE | 2018-04-20 14:43 | PRG ---
DATE OF SERVICE: 04/20/2018 SUBJECTIVE: He is aphasic, status post cerebrovascular accident. OBJECTIVE: VITAL SIGNS: Blood pressure is 179/87, pulse 73, temperature 98, sats are 90% on room air. CHEST: No wheezing, no crackles. CARDIAC: Normal S1 and S2. No gallops. ABDOMEN: Soft. No masses. IMPRESSION: 1. Gram-negative sepsis, on IV Cipro. 2. Cerebrovascular accident. PLAN: Pulmonary shetty, placement. Maybe Cipro could be switched over to p.o. .
--- NOTE | 2018-04-20 19:44 | CON ---
DATE OF CONSULTATION: 04/20/2018 REASON FOR CONSULTATION: Bacteremia. HISTORY OF PRESENT ILLNESS: A 67-year-old patient appears to be the first admission to this hospital , lives alone and apparently family found him unresponsive or with altered mental status in his home. EMS was activated and the patient brought to the ED at [facility]. On arrival, his BP was 207/141, pulse 101, respiratory rate 22, temperature 97, O2 sat 100% and this was a room air O2 sats . His ocular movements appeared to be intact. Pupillary reactions are intact as well. HEENT examin ation otherwise, was not remarkable. Neck was supple. Lungs with clear breath sounds. Heart exam w ith normal heart sounds and regular rate. Abdomen was then appear tender. Patient had an area of un stageable pressure ulceration in the presacral region and another one stage II in the right gluteal r egion. Initial laboratory demonstrated white cell count 16.4, hemoglobin 12, platelets 178 with 80% neutroph ils, 12% bands. Chemistry with a sodium 140, creatinine 1.56. GFR estimated at 44, glucose 120, steven cium 9.3, bilirubin 1.0, AST 111, ALT 33, and alkaline phosphatase 68. Creatinine kinase was 3800. Troponin 0.056, albumin 3.8. Urinalysis with is no WBCs seen. Negative protein. INR was 1.1. The patient had a brain CT, which showed prominent ischemic changes with multiple lacunar infarcts and br ain stem infarct of indeterminate age. The MRI was subsequently ordered and it demonstrated multifoc al punctate restricted diffusion areas compatible with recent infarctions and supratentorial and infr atentorial brain involving both a bilateral brain parenchyma as well as deep barrientos nuclei brain stem. This could be either hyperperfusion or embolic phenomena. Echocardiogram completed showed an EF of 55%, diastolic dysfunction, mild valvular regurgitation and a chest x-ray with clear lung wise. Th e initial impression was encephalopathic, possible sepsis, acute kidney injury, hypertensive emergenc y, malnutrition. The patient has been given initially Zosyn and then transitioned to ciprofloxacin. He is currently awake, lying in bed on his left lateral decubitus. He is able to establish eye cont act, but has quite significant difficulty in expressing his thoughts. He follows some commands, but very limited range of commands that he is able to follow. He has had no evidence of seizure activity and does not display any evidence of respiratory distress, has not had diarrhea and he is voiding in the diaper. PAST MEDICAL HISTORY: Unable to confirm past medical history with the patient. SOCIAL HISTORY: Former smoker. Apparently a current smoker as well. ALLERGIES: No known reported allergies. MEDICATION LIST: Currently include Tylenol, aspirin, Lipitor, Cipro, enoxaparin, Pepcid, metoprolol. FAMILY HISTORY: Not available. PHYSICAL EXAMINATION: VITAL SIGNS: T-max 98.9, blood pressure 190/90, pulse 75, respirations 16, O2 sat 98%. SKIN: Demonstrates an area of round ulceration on top of the left knee suprapatellar region with mil d erythema, the area measures about 1.5 cm and has a brownish scab at the base. In the presacral reg ion, there is about a 4 x 4 cm necrotic eschar covered ulcer with a surrounding area of erythema. Th is ulcer is unstageable. There are minor ulcerations above that area stage 2 at the most. The patie nt has a peripheral IV access. He has no lymphadenopathy. HEENT: Ocular movements are conjugate. Sclerae are white. Pupils are 2 mm and reactive. The patie nt has no red cliff teeth. Oral mucosa is moist. Sort of a grayish green coating of his tongue. NECK: Supple. No jugular vein distention. LUNGS: Symmetric air entry. HEART: S1, S2, regular rate without murmurs. ABDOMEN: Soft, not distended or tender. EXTREMITIES: No joint inflammatory activity. Pulses are 1+ in dorsalis pedis. He has onychodystrop hy. Nails are poorly kept long. He is able to move extremities. NEUROLOGIC: Plantar responses are indifferent. No clonus. He is able to wiggle his toes on command . He moves his upper extremities on command as well. He establishes eye contact. He knows his name , but could not tell me where he was. He had some perseverance in the verbal output. No delusional thought process was identified. No hallucinations. LABORATORY DATA: Follow up labs showed a white cell count down to 6.9, hemoglobin 10, platelets 153 with 83% neutrophils. INR 1.1 and chemistry with a creatinine at 1.13, GFR 64, potassium 3.1. Micro biology with Proteus mirabilis and Morganella morganii, both organisms with fairly broad resistant pr ofile except for quinolones, aminoglycosides, trimethoprim and sulfamethoxazole with resistance to al l cephalosporins and carbapenems. Morganella with the exactly same profile. ASSESSMENT AND PLAN: Altered mental status with multifocal areas of brain infarction associated with hypertensive crisis and bacteremia due to 2 different gram negative rods as well as rhabdomyolysis. DISCUSSION: The source of the bacteremia at this point is not clear, intraabdominal compartment cert ainly a candidate. Urinary tract does not appear to be involved unless the patient has obstruction t hat was not identified yet. There is no apparent evidence of respiratory tract infection. The possi bility of embolic lesions in the brain is less likely. Those are more likely related to the hyperten sive emergency. In addition to that, the patient has lacunar infarctions. The pressure ulceration i n the back could be the source of the bacteremia since the ulcers is unstageable and this could have much deeper involvement and what is apparent by superficial evaluation. We will proceed with CT of a bdomen and pelvis with IV and oral contrast. May have to add a aminoglycoside for coverage depending on clinical progress, but will wait until his renal function improves further.
[2018-04-20] MEDS: Atorvastatin Calcium 40 MG TAB PO SCH (22:54)
--- NOTE | 2018-04-20 23:01 | CT ---
ABDOMEN CT WITH CONTRAST PELVIC CT WITH CONTRAST 04/20/18 HISTORY: Polymicrobial bacteremia, unknown source. COMPARISON: None. FINDINGS: TECHNIQUE: Abdomen and pelvic CT are performed without intravenous or oral contrast administration. Axial images are performed from the lung bases through the symphysis pubis. Coronal reformatted image are submitt ed for interpretation. FINDINGS: ABDOMEN CT: Small bilateral effusions with adjacent lung parenchymal opacities due to atelectasis or pneumonia. H eart size is normal. No significant pericardial fluid. The visualized aorta demonstrates mild prominence without evidence of aneurysm or dissection. There i s no periaortic fat stranding. Symmetric attenuation of the psoas muscles. Intra and extrahepatic portal vein is patent. Gallbladder is unremarkable. Liver, spleen, pancreas, and adrenal glands have appropriate enhancement. Symmetric enhancement of the kidneys. Bilaterally, no evidence of obstructive uropathy. Decreased intra-abdominal fat limits evaluation for inflammatory change. Trace amount of fluid in bot h pericolic gutters. No mesenteric mass, lymphadenopathy or free air. Note is made of a small hiatal hernia. Gastric mucosa is grossly unremarkable. There are multiple nor mal caliber small bowel loops. There is some mucosal prominence involving jejunal loops. Ileocecal ju nction appears to be normal. Note, there is some fecalization of the terminal ileum and distal ileum. Findings are nonspecific and may be due to an incompetent ileocecal valve. Obstruction is less favor ed but cannot be completely excluded. Appendix is suggested and appears to be normal in caliber. Ther e is scattered fecal material in a nondistended, nondilated colon. No definite pericolonic fat strand ing. Evaluation is limited by the lack of contrast opacification. There is mild edema involving the soft tissues . A component of anasarca cannot be completely exclude d. PELVIC CT: No mass, lymphadenopathy, free air or free fluid. Unremarkable urinary bladder. No lytic or blastic lesions in the osseous structures. Bilateral pars defects at L5 are noted. IMPRESSION: 1. No acute abnormality with regards to the solid organs. 2. 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 If there is concern for bowel obstruction, consider general surgical consultation. 3. Nonspecific mucosal prominence of proximal small bowel loops. Correlate clinically for enteri tis. 4. Small bilateral effusions with adjacent lung parenchymal opacification which is presumed to b e due to atelectasis. POS: [place]
[2018-04-21] MEDS: Sodium Chloride 0.45% 1,000 ML IV SCH ×3 (06:12→21:59)
[2018-04-21] MEDS: Labetalol HCl 100 MG/20 ML VIAL SLOW IVP PRN ×3 (06:13→22:07)
[2018-04-21] MEDS: Enoxaparin Sodium 40 MG/0.4 ML SYRINGE SC SCH (08:56)
[2018-04-21] MEDS: Famotidine 20 MG TAB PO SCH ×2 (08:56→21:59)
[2018-04-21] MEDS: Metoprolol Tartrate 25 MG TAB PO SCH ×2 (08:56→21:59)
[2018-04-21] MEDS: hydrALAZINE 20 MG/ML VIAL SLOW IVP PRN ×2 (09:11→18:13)
--- NOTE | 2018-04-21 11:38 | PDOC.PN ---
- Subjective Encounter Start Date: 04/21/18 Encounter Start Time: 07:20 Pt seen for followup re: bacteremia. Mumbling, unable to answer questions, could not complete ROS. - Objective Resuscitation Status: Resuscitation Status FULL:Full Resuscitation MAR Reviewed: Yes Vital Signs & Weight: Vital Signs (12 hours) Temp Pulse Resp BP BP Pulse Ox 04/21/18 09:55 85 143/71 H 04/21/18 09:15 86 183/91 H 04/21/18 09:11 82 04/21/18 08:54 97.8 F 82 17 187/106 H 98 04/21/18 06:13 82 193/92 H 04/21/18 04:00 98.4 F 84 16 193/92 H 98 04/20/18 23:53 97.9 F 79 20 189/93 H 99 Weight Admit Weight 138 lb 7.205 oz Weight 138 lb 7.205 oz Most Recent Monitor Data Heart Rate from ECG 71 NIBP 162/87 NIBP BP-Mean 112 Respiration from ECG 2 SpO2 100 I&O: 04/20/18 04/21/18 04/22/18 06:59 06:59 06:59 Intake Total 2227 1440 1203 Output Total 558 Balance 1669 1440 1203 Result Diagrams: 04/19/18 04:32 04/20/18 03:59 EKG Reviewed by me: Yes (Tele: NSR) Phys Exam - Physical Examination Constitutional: NAD HEENT: moist MMs Neck: supple Respiratory: clear to auscultation bilateral Cardiovascular: RRR Gastrointestinal: soft Neurological: moves all 4 limbs Psychiatric: normal affect Deviation from normal: wounds as documented Dx/Plan (1) Bacteremia Code(s): R78.81 - BACTEREMIA Status: Acute Comment: continue ciprofloxacin. (2) Acute metabolic encephalopathy Code(s): G93.41 - METABOLIC ENCEPHALOPATHY Status: Acute Comment: multifactorial, including infection and probable psychiatric disorder (3) Hypokalemia Code(s): E87.6 - HYPOKALEMIA Status: Acute Comment: recheck potassium level (4) Hypertensive urgency Code(s): I16.0 - HYPERTENSIVE URGENCY Status: Resolved (5) AIDEN (acute kidney injury) Code(s): N17.9 - ACUTE KIDNEY FAILURE, UNSPECIFIED Status: Resolved (6) Sepsis Code(s): A41.9 - SEPSIS, UNSPECIFIED ORGANISM Status: Resolved - Plan * . Review of Systems - Medications/Allergies Allergies/Adverse Reactions: Allergies Allergy/AdvReac Type Severity Reaction Status Date / Time No Known Drug Allergies Allergy Verified 04/20/18 05:55 Medications: Current Medications Acetaminophen (Tylenol) 650 mg PO Q4H PRN PRN Reason: Headache/Fever/Mild Pain (1-3) Aspirin (Aspirin Chewable) 81 mg PO DAILY [facility] Last Admin: 04/21/18 08:56 Dose: 81 mg Atorvastatin Calcium (Lipitor) 40 mg PO HS [facility] Last Admin: 04/20/18 22:54 Dose: 40 mg Enoxaparin Sodium (Lovenox) 40 mg SC 0900 [facility] Last Admin: 04/21/18 08:56 Dose: 40 mg Famotidine (Pepcid) 20 mg PO BID [facility] Last Admin: 04/21/18 08:56 Dose: 20 mg Hydralazine HCl (Apresoline) 10 mg SLOW IVP Q6H PRN PRN Reason: SBP Greater Than 170 Last Admin: 04/21/18 09:11 Dose: 10 mg Sodium Chloride (1/2 Normal Saline) 1,000 mls @ 75 mls/hr IV .[id number] [facility] Last Admin: 04/21/18 06:12 Dose: 1,000 mls Ciprofloxacin/Dextrose 400 mg/ (Device) 200 mls @ 200 mls/hr IVPB Q12HR [facility] Last Admin: 04/21/18 08:55 Dose: 200 mls Labetalol HCl (Normodyne) 20 mg SLOW IVP Q4H PRN PRN Reason: SBP GREATER THAN 160 Last Admin: 04/21/18 06:13 Dose: 4 ml Metoprolol Tartrate (Lopressor) 12.5 mg PO BID [facility] Last Admin: 04/21/18 08:56 Dose: 12.5 mg Ccu Electrolyte (Replacement Protocol) 0 each FS PRN PRN PRN Reason: FOR ELECTROLYTE REPLACEMENT
--- NOTE | 2018-04-21 15:10 | PRG ---
DATE OF SERVICE: 04/21/2018 SUBJECTIVE: Mr. Nelson was not oriented to place or time. He was oriented to person. He said he was at my house. OBJECTIVE: VITAL SIGNS: He is afebrile, heart rate is 80, respiratory rate 20, oximetry is 96 on room air, bloo d pressure 161/81. LUNGS: Clear. HEART: Regular rhythm. ABDOMEN: Soft. He has grown 2 different organisms, perhaps three out of two blood cultures. LABORATORY DATA: His white count 6.9 on the , there is no lab today. IMPRESSION: 1. Encephalopathy. 2. ? bacteremia with multiple organisms. 3. Multiple central nervous system thrombotic infarctions. 4. Hypertension. 5. Rhabdomyolysis. CT was ordered by Infectious Disease today. Antibiotics were adjusted. We will continue to follow.
[2018-04-21] MEDS: Atorvastatin Calcium 40 MG TAB PO SCH (21:58)
[2018-04-22] MEDS: hydrALAZINE 20 MG/ML VIAL SLOW IVP PRN (04:13)
[2018-04-22 05:30] LABS: #Eosinphils 0.3 thou/uL (0.0-0.7); #Lymphocytes 1.2 thou/uL (1.20-3.40); #Monocytes 0.5 thou/uL (0.11-0.59); #Neutrophils 6.7 thou/uL (1.40-6.50); %Basophils 0.5 % (0.0-1.0); %Eosinophils 2.9 % (0.0-10.0); %Lymphocytes 13.3 % (21.0-51.0); %Monocytes 5.9 % (0.0-10.0); %Neutrophils 77.3 % (42.0-75.0); Hemoglobin 9.4 g/dL (14.0-18.0); Mean Corpuscular HGB CONC 33.1 g/dL (32.0-36.0); Mean Corpuscular Hemoglobin 30.3 pg (27.0-31.0); Mean Corpuscular Volume 91.6 fL (78.0-98.0); Mean Platelet Volume 8.3 fL (7.4-10.4); Platelet Count 191 thou/uL (130-400); RBC Distribution Width 12.7 % (11.5-14.5); Red Blood Cell (RBC) Count 3.08 mill/uL (4.70-6.10); White Blood Cell (WBC) Count 8.7 thou/uL (4.8-10.8)
[2018-04-22] MEDS: Labetalol HCl 100 MG/20 ML VIAL SLOW IVP PRN ×3 (05:43→22:04)
[2018-04-22 05:53] LABS: Anion Gap 12 mmol/L (10-20); BUN (Urea Nitrogen) 14 mg/dL (8.4-25.7); Calc. Creatinine Clearance 76 mL/min (70-130); Calcium 8.2 mg/dL (7.8-10.44); Carbon Dioxide 24 mmol/L (23-31); Chloride 104 mmol/L (98-107); Estimated GFR-MDRD Greater than 90; Glucose 87 mg/dL (80-115); Potassium 3.9 mmol/L (3.5-5.1); Sodium 136 mmol/L (136-145)
[2018-04-22] MEDS: Metoprolol Tartrate 25 MG TAB PO SCH ×2 (08:30→21:53)
[2018-04-22] MEDS: Famotidine 20 MG TAB PO SCH ×2 (08:30→21:53)
[2018-04-22] MEDS: Enoxaparin Sodium 40 MG/0.4 ML SYRINGE SC SCH (08:31)
--- NOTE | 2018-04-22 13:16 | PDOC.PN ---
- Subjective Encounter Start Date: 04/22/18 Encounter Start Time: 07:20 Pt seen for followup re: bacteremia. Awake and alert, answering questions. - Objective Resuscitation Status: Resuscitation Status FULL:Full Resuscitation MAR Reviewed: Yes Vital Signs & Weight: Vital Signs (12 hours) Temp Pulse Pulse Resp BP BP BP 04/22/18 11:21 97.8 F 67 15 157/69 H 04/22/18 10:33 74 148/76 H 04/22/18 09:44 76 142/70 H 04/22/18 08:37 04/22/18 07:58 97.5 F L 78 20 168/76 H 04/22/18 06:30 156/61 H 04/22/18 05:43 80 169/77 H 04/22/18 04:13 78 193/85 H 04/22/18 03:26 97.9 F 75 18 193/85 H Pulse Ox 04/22/18 11:21 97 04/22/18 10:33 04/22/18 09:44 04/22/18 08:37 97 04/22/18 07:58 97 04/22/18 06:30 04/22/18 05:43 04/22/18 04:13 04/22/18 03:26 96 Weight Admit Weight 138 lb 7.205 oz Weight 138 lb 7.205 oz Most Recent Monitor Data Heart Rate from ECG 71 NIBP 162/87 NIBP BP-Mean 112 Respiration from ECG 2 SpO2 100 I&O: 04/21/18 04/22/18 04/23/18 06:59 06:59 06:59 Intake Total 1440 3776 1119 Balance 1440 3776 1119 Result Diagrams: 04/23/18 05:53 04/23/18 05:53 EKG Reviewed by me: Yes (Tele: NSR) Phys Exam - Physical Examination Constitutional: NAD HEENT: moist MMs Neck: supple Respiratory: clear to auscultation bilateral Cardiovascular: RRR Gastrointestinal: soft Neurological: moves all 4 limbs Psychiatric: normal affect Deviation from normal: Oriented to person only, not to place or time Dx/Plan (1) Bacteremia Code(s): R78.81 - BACTEREMIA Status: Acute Comment: will continue ciprofloxacin. (2) Acute metabolic encephalopathy Code(s): G93.41 - METABOLIC ENCEPHALOPATHY Status: Acute Comment: Significantly improved. (3) Hypokalemia Code(s): E87.6 - HYPOKALEMIA Status: Resolved (4) Hypertensive urgency Code(s): I16.0 - HYPERTENSIVE URGENCY Status: Resolved (5) AIDEN (acute kidney injury) Code(s): N17.9 - ACUTE KIDNEY FAILURE, UNSPECIFIED Status: Resolved (6) Sepsis Code(s): A41.9 - SEPSIS, UNSPECIFIED ORGANISM Status: Resolved - Plan * . Review of Systems - Review of Systems Respiratory: negative: Cough, Shortness of Breath, SOB with Excertion, Pleuritic Pain, Wheezing Cardiovascular: negative: chest pain, palpitations, orthopnea, paroxysmal nocturnal dyspnea, edema, light headedness - Medications/Allergies Allergies/Adverse Reactions: Allergies Allergy/AdvReac Type Severity Reaction Status Date / Time No Known Drug Allergies Allergy Verified 04/20/18 05:55 Medications: Current Medications Acetaminophen (Tylenol) 650 mg PO Q4H PRN PRN Reason: Headache/Fever/Mild Pain (1-3) Aspirin (Aspirin Chewable) 81 mg PO DAILY [facility] Last Admin: 04/22/18 08:30 Dose: 81 mg Atorvastatin Calcium (Lipitor) 40 mg PO HS [facility] Last Admin: 04/21/18 21:58 Dose: 40 mg Enoxaparin Sodium (Lovenox) 40 mg SC 0900 [facility] Last Admin: 04/22/18 08:31 Dose: 40 mg Famotidine (Pepcid) 20 mg PO BID [facility] Last Admin: 04/22/18 08:30 Dose: 20 mg Hydralazine HCl (Apresoline) 10 mg SLOW IVP Q6H PRN PRN Reason: SBP Greater Than 170 Last Admin: 04/22/18 04:13 Dose: 10 mg Sodium Chloride (1/2 Normal Saline) 1,000 mls @ 75 mls/hr IV .[id number] [facility] Last Admin: 04/21/18 21:59 Dose: 1,000 mls Ciprofloxacin/Dextrose 400 mg/ (Device) 200 mls @ 200 mls/hr IVPB Q12HR [facility] Last Admin: 04/22/18 08:31 Dose: 200 mls Labetalol HCl (Normodyne) 20 mg SLOW IVP Q4H PRN PRN Reason: SBP GREATER THAN 160 Last Admin: 04/22/18 05:43 Dose: 4 ml Metoprolol Tartrate (Lopressor) 12.5 mg PO BID [facility] Last Admin: 04/22/18 08:30 Dose: 12.5 mg Ccu Electrolyte (Replacement Protocol) 0 each FS PRN PRN PRN Reason: FOR ELECTROLYTE REPLACEMENT
[2018-04-22] MEDS: Sodium Chloride 0.45% 1,000 ML IV SCH (13:42)
[2018-04-22] MEDS: Atorvastatin Calcium 40 MG TAB PO SCH (21:52)
[2018-04-23] MEDS: hydrALAZINE 20 MG/ML VIAL SLOW IVP PRN (02:28)
[2018-04-23 06:25] LABS: #Eosinphils 0.3 thou/uL (0.0-0.7); #Lymphocytes 1.3 thou/uL (1.20-3.40); #Monocytes 0.7 thou/uL (0.11-0.59); #Neutrophils 6.5 thou/uL (1.40-6.50); %Basophils 0.4 % (0.0-1.0); %Eosinophils 3.1 % (0.0-10.0); %Monocytes 7.8 % (0.0-10.0); %Neutrophils 73.8 % (42.0-75.0); Hemoglobin 9.8 g/dL (14.0-18.0); Mean Corpuscular HGB CONC 33.4 g/dL (32.0-36.0); Mean Corpuscular Hemoglobin 30.5 pg (27.0-31.0); Mean Corpuscular Volume 91.6 fL (78.0-98.0); Mean Platelet Volume 7.9 fL (7.4-10.4); Platelet Count 229 thou/uL (130-400); RBC Distribution Width 12.5 % (11.5-14.5); Red Blood Cell (RBC) Count 3.21 mill/uL (4.70-6.10); White Blood Cell (WBC) Count 8.8 thou/uL (4.8-10.8)
[2018-04-23 07:15] LABS: Anion Gap 11 mmol/L (10-20); BUN (Urea Nitrogen) 14 mg/dL (8.4-25.7); Calc. Creatinine Clearance 68 mL/min (70-130); Calcium 8.3 mg/dL (7.8-10.44); Carbon Dioxide 26 mmol/L (23-31); Chloride 103 mmol/L (98-107); Estimated GFR-MDRD 83; Glucose 88 mg/dL (80-115); Potassium 3.7 mmol/L (3.5-5.1); Sodium 136 mmol/L (136-145)
[2018-04-23] MEDS: Enoxaparin Sodium 40 MG/0.4 ML SYRINGE SC SCH (08:34)
[2018-04-23] MEDS: Famotidine 20 MG TAB PO SCH ×2 (08:34→21:27)
[2018-04-23] MEDS: Metoprolol Tartrate 25 MG TAB PO SCH ×2 (08:34→21:27)
[2018-04-23] MEDS: Nicotine 21 MG PATCH TOP SCH (09:12)
--- NOTE | 2018-04-23 10:32 | PDOC.PN ---
- Subjective Encounter Start Date: 04/23/18 Encounter Start Time: 07:20 Pt seen for followup re: bacteremia. Denies chest pain, shortness of breath, fevers or chills. - Objective Resuscitation Status: Resuscitation Status FULL:Full Resuscitation Vital Signs & Weight: Vital Signs (12 hours) Temp Pulse Resp BP BP Pulse Ox 04/23/18 09:40 77 159/76 H 04/23/18 08:33 96 04/23/18 07:31 98.0 F 83 16 178/81 H 96 04/23/18 04:06 98.0 F 83 16 160/72 H 94 L 04/23/18 02:28 76 176/79 H 04/22/18 23:27 98.6 F 78 18 176/79 H 96 Weight Admit Weight 138 lb 7.205 oz Weight 138 lb 7.205 oz Most Recent Monitor Data Heart Rate from ECG 71 NIBP 162/87 NIBP BP-Mean 112 Respiration from ECG 2 SpO2 100 I&O: 04/22/18 04/23/18 04/24/18 06:59 06:59 06:59 Intake Total 3776 2726 675 Balance 3776 2726 675 Result Diagrams: 04/23/18 05:53 04/23/18 05:53 Phys Exam - Physical Examination Constitutional: NAD HEENT: moist MMs Neck: supple Respiratory: clear to auscultation bilateral Cardiovascular: RRR Gastrointestinal: soft Neurological: moves all 4 limbs Psychiatric: normal affect Deviation from normal: wounds as documented Dx/Plan (1) Bacteremia Code(s): R78.81 - BACTEREMIA Status: Acute Comment: on ciprofloxacin. (2) Acute metabolic encephalopathy Code(s): G93.41 - METABOLIC ENCEPHALOPATHY Status: Acute Comment: Improving (3) Hypokalemia Code(s): E87.6 - HYPOKALEMIA Status: Resolved (4) Hypertensive urgency Code(s): I16.0 - HYPERTENSIVE URGENCY Status: Resolved (5) AIDEN (acute kidney injury) Code(s): N17.9 - ACUTE KIDNEY FAILURE, UNSPECIFIED Status: Resolved (6) Sepsis Code(s): A41.9 - SEPSIS, UNSPECIFIED ORGANISM Status: Resolved - Plan * . Review of Systems - Review of Systems Constitutional: negative: fever, chills, sweats, weakness, malaise Cardiovascular: negative: chest pain, palpitations, orthopnea, paroxysmal nocturnal dyspnea, edema, light headedness - Medications/Allergies Allergies/Adverse Reactions: Allergies Allergy/AdvReac Type Severity Reaction Status Date / Time No Known Drug Allergies Allergy Verified 04/20/18 05:55 Medications: Current Medications Acetaminophen (Tylenol) 650 mg PO Q4H PRN PRN Reason: Headache/Fever/Mild Pain (1-3) Aspirin (Aspirin Chewable) 81 mg PO DAILY [facility] Last Admin: 04/23/18 08:33 Dose: 81 mg Atorvastatin Calcium (Lipitor) 40 mg PO HS [facility] Last Admin: 04/22/18 21:52 Dose: 40 mg Enoxaparin Sodium (Lovenox) 40 mg SC 0900 [facility] Last Admin: 04/23/18 08:34 Dose: 40 mg Famotidine (Pepcid) 20 mg PO BID [facility] Last Admin: 04/23/18 08:34 Dose: 20 mg Hydralazine HCl (Apresoline) 10 mg SLOW IVP Q6H PRN PRN Reason: SBP Greater Than 170 Last Admin: 04/23/18 02:28 Dose: 10 mg Ciprofloxacin/Dextrose 400 mg/ (Device) 200 mls @ 200 mls/hr IVPB Q12HR [facility] Last Admin: 04/23/18 08:53 Dose: 200 mls Labetalol HCl (Normodyne) 20 mg SLOW IVP Q4H PRN PRN Reason: SBP GREATER THAN 160 Last Admin: 04/22/18 22:04 Dose: 4 ml Metoprolol Tartrate (Lopressor) 12.5 mg PO BID [facility] Last Admin: 04/23/18 08:34 Dose: 12.5 mg Nicotine (Nicoderm Patch) 21 mg TOP 0900 [facility] Last Admin: 04/23/18 09:12 Dose: 21 mg Sodium Chloride (Flush - Normal Saline) 10 ml IVF PRN PRN PRN Reason: Saline Flush Last Admin: 04/23/18 08:34 Dose: 10 ml
[2018-04-23] MEDS: Atorvastatin Calcium 40 MG TAB PO SCH (21:27)
[2018-04-24] MEDS: hydrALAZINE 20 MG/ML VIAL SLOW IVP PRN ×2 (00:58→08:55)
[2018-04-24 05:16] LABS: #Basophils 0.1 thou/uL (0.0-0.2); #Eosinphils 0.2 thou/uL (0.0-0.7); #Lymphocytes 1.2 thou/uL (1.20-3.40); #Monocytes 0.8 thou/uL (0.11-0.59); #Neutrophils 5.9 thou/uL (1.40-6.50); %Eosinophils 2.8 % (0.0-10.0); %Monocytes 10.2 % (0.0-10.0); Hemoglobin 10.6 g/dL (14.0-18.0); Mean Corpuscular HGB CONC 32.6 g/dL (32.0-36.0); Mean Corpuscular Hemoglobin 30.2 pg (27.0-31.0); Mean Corpuscular Volume 92.6 fL (78.0-98.0); Mean Platelet Volume 7.7 fL (7.4-10.4); Platelet Count 266 thou/uL (130-400); RBC Distribution Width 12.6 % (11.5-14.5); Red Blood Cell (RBC) Count 3.52 mill/uL (4.70-6.10); White Blood Cell (WBC) Count 8.2 thou/uL (4.8-10.8)
[2018-04-24 05:37] LABS: Anion Gap 10 mmol/L (10-20); BUN (Urea Nitrogen) 16 mg/dL (8.4-25.7); Calc. Creatinine Clearance 65 mL/min (70-130); Calcium 8.6 mg/dL (7.8-10.44); Carbon Dioxide 27 mmol/L (23-31); Chloride 103 mmol/L (98-107); Estimated GFR-MDRD 81; Glucose 94 mg/dL (80-115); Potassium 3.8 mmol/L (3.5-5.1); Sodium 136 mmol/L (136-145)
[2018-04-24] MEDS: Metoprolol Tartrate 25 MG TAB PO SCH (08:48)
[2018-04-24] MEDS: Enoxaparin Sodium 40 MG/0.4 ML SYRINGE SC SCH (08:50)
[2018-04-24] MEDS: Nicotine 21 MG PATCH TOP SCH (08:50)
[2018-04-24] MEDS: Famotidine 20 MG TAB PO SCH (08:50)
--- NOTE | 2018-04-24 11:34 | PRG ---
DATE OF SERVICE: 04/24/2018 SUBJECTIVE: Mr. Nelson is definitely better than last week. He is now able to communicate with me wi thout limitation. OBJECTIVE: VITAL SIGNS: Temperature 98.5, pulse 95, blood pressure 177/72, O2 sat 96% on room air. HEENT: Unremarkable. LUNGS: Clear. CARDIAC: S1 and S2 regular, without murmur. ABDOMEN: Soft. EXTREMITIES: No edema. LABORATORY DATA: White blood cell count 8.2, hematocrit 32.6, platelet count 266. Sodium 136, potas sium 3.8, chloride 103, CO2 of 27, BUN 16, creatinine 0.9, glucose 94. ASSESSMENT: 1. Gram-negative sepsis, which has improved. 2. Hypertensive emergency, has resolved. 3. Encephalopathy, which is improved. 4. Rhabdomyolysis. RECOMMENDATIONS: 1. Continue antibiotics per ID. 2. Nothing further to add from a Pulmonary Critical Care standpoint. We will sign off the case. Pl ease recall if further assistance needed.
[2018-04-24] MEDS ORDERED: Clopidogrel Bisulfate 75 MG TAB PO SCH (11:45)
[2018-04-24] MEDS ORDERED: hydrALAZINE 25 MG TAB PO SCH (15:15)
[2018-04-24 16:20] VITALS: TEMP 97.6
[2018-04-24 16:22] VITALS: BP 173/89
[2018-04-24] MEDS ORDERED: cloNIDine 0.1 MG TAB PO SCH (16:45)
--- NOTE | 2018-04-25 00:21 | DIS ---
DATE OF ADMISSION: 04/17/2018 DATE OF DISCHARGE: 04/24/2018 PRIMARY CARE PROVIDER: Kris Ford MD in [place], [place] DISCHARGE DIAGNOSES: 1. Sepsis. 2. Bacteremia. 3. Urinary tract infection, suspected. 4. Hypertensive emergency. 5. Acute kidney injury. 6. Protein calorie malnutrition. 7. Deconditioning. 8. Hypokalemia. 9. Acute encephalopathy. 10. Rhabdomyolysis. CONSULTATIONS DURING THIS HOSPITALIZATION: Pulmonary Critical Care Medicine, Dr. Prashant Dawson; Neur ology, Dr. Kurtis Way; and Cardiology, Dr. Isidro Ferrari; and Infectious Disease, Dr. Agus hein. CONDITION OF PATIENT ON THE DAY OF DISCHARGE: Stable. I assessed Mr. Nelson on the day of discharge. He denies any chest pain or shortness of breath. Vital signs are stable. S1 and S2 are heard, reg ular. Lungs are clear to auscultation bilaterally. DISCHARGE MEDICATIONS: Aspirin 81 mg daily, Lipitor 40 mg at bedtime, Cipro 500 mg 2 times a day for 2 weeks, metoprolol 12.5 mg 2 times a day and Nicoderm CQ 21 mg patch daily. HOSPITAL COURSE: Mr. Nelson is a pleasant 67-year-old gentleman who was admitted to [facility] on 04/17/2018 for sepsis. Please refer to Dr. Sierra's history and physical note eric beck 04/18/2018 for further details. 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 He was seen by [facility], who recommended continuing him on aspirin and statin. He was also seen by Cardiology Service for mildly elevated troponins, and they agreed with aspirin and statin. A 2D echocardiogram showed left ventricular ejection fraction of 50%-55% and E/A flow reversal suggestive of diastolic d ysfunction. He had mild mitral regurgitation and mild tricuspid regurgitation. Urine cultures grew mixed skin and enteric júnior. Blood cultures grew Proteus mirabilis, which was s ensitive to ciprofloxacin, gentamicin, levofloxacin, tobramycin, trimethoprim sulfamethoxazole and am ikacin, but resistant to ampicillin, ampicillin/sulbactam, cefepime, cefoxitin, ceftazidime, ceftriax one, meropenem, and Zosyn. Blood cultures also grew Morganella morganii, with similar sensitivity pa ttern. The patient was seen by Infectious Diseases Service. He underwent CT scan of the abdomen and pelvis on 04/20/2018, which did not show any acute abnormality with regard to solid organs. 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 He had no nspecific mucosal prominence of proximal small bowel loops and small bilateral effusions with adjacen t lung parenchymal opacification presumed to be due to atelectasis. Towards the end of the hospital stay, Mr. Nelson started improving. He was noncommunicating for most of this hospitalization. However, starting around 04/22/2018, he was awake, alert, and answering que stions. He also improved in terms of oral dietary intake. Infectious Disease service would like to follow up with him, since he might have an intra-abdominal i nflammatory process that was not revealed by the CT scan. Prior to this hospitalization, he was francisco ng alone. His mother felt that he could not go home. [facility] [place]. He will need to see Dr. Madera in 2-3 weeks as outpatient. On the day of discharge, Mr. Nelson has a normal Chem-7, white count 8200, hemoglobin 10.6, and platel et count 266,000. Please note that at the time of admission, he had rhabdomyolysis with elevated CK of 3845, which decreased to 565 by 04/20/2018. He also had hypokalemia during this hospitalization, which resolved. He also had acute kidney injury at the time of admission, which resolved. Many thanks for allowing me to participate in your patient's care. Please feel free to contact me wi th any questions or concerns. DISCHARGE DESTINATION: [facility] [place]. TOTAL AMOUNT OF TIME SPENT COORDINATING THIS DISCHARGE: 33 minutes.
[2018-04-25] MEDS ORDERED: Clopidogrel Bisulfate 75 MG TAB PO SCH (09:00)
== END 2018-04-24 17:23 | DRG 871 ==
LOC: ERS 19:25 → CCU 22:49 → 2SE 04-19 20:16
PROVIDERS: ADMIT Internal Medicine; ATTEND Internal Medicine
DX: A41.50 Gram-negative sepsis, unspecified (principal); G93.41 Metabolic encephalopathy; N39.0 Urinary tract infection, site not specified; N17.9 Acute kidney failure, unspecified; E46 Unspecified protein-calorie malnutrition; M62.82 Rhabdomyolysis; I24.8 Other forms of acute ischemic heart disease; I16.0 Hypertensive urgency; E86.0 Dehydration; Z68.21 Body mass index [BMI] 21.0-21.9, adult; E87.6 Hypokalemia; F17.210 Nicotine dependence, cigarettes, uncomplicated; L89.150 Pressure ulcer of sacral region, unstageable; L89.312 Pressure ulcer of right buttock, stage 2; I08.1 Rheumatic disorders of both mitral and tricuspid valves
CPT/HCPCS: 36415; 70450; 70551; 71045; 74177; 80048; 80053; 80061; 81003; 81015; 82140; 82550; 82553; 83605; 83735; 84100; 84484; 85025; 85610; 85652; 85730; 87040; 87077; 87086; 87149; 87186; 93005; 93306; 94760; 96361; 96365; 96366; G8978-GP-CM; G8979-GP-CK; G8987-GO-CM; G8988-GO-CK; G8996-GN-CK; G8997-GN-CJ; J0360; J0744; J1650; J2543; J3370; J7050; S0028